=== PATIENT | female | born 1935 | race Caucasian/White ===

== ENCOUNTER 2022-08-25 16:53 | Emergency (ER) | payer MEDICARE ==
[~2022-08-25] VITALS: Ht 154.9 cm; Wt 63.5 kg
[2022-08-25] MEDS ORDERED: MECLIZINE HCL 25 MG TABLET PO ONE (18:00)
[2022-08-25 18:38] LABS: CREATININE 1.5 mg/dL (0.5-1.5); POTASSIUM 4.1 mmol/L (3.5-5.1)
[2022-08-25 18:46] LABS: ALBUMIN 3.1 g/dL (3.5-5.0); TOTAL PROTEIN, SERUM 6.2 g/dL (6.0-8.3)
[2022-08-25 19:01] LABS: BASOPHILS % (AUTO) 1.1 % (0.0-5.0); EOSINOPHILS % (AUTO) 1.9 % (0.0-8.0); HEMATOCRIT 35.2 % (36-48); MEAN CORPUSCULAR HEMOGLOBIN 30.6 pg (27.0-33.0); MEAN CORPUSCULAR HGB CONC 33.8 g/dL (32.0-36.0); MEAN CORPUSCULAR VOLUME 90.5 fL (79-99); MONOCYTES % (AUTO) 8.7 % (3.0-13.0); NEUTROPHILS % (AUTO) 59.8 % (40.0-77.0); PLATELET COUNT (AUTO) 184 K/uL (130-400); RED BLOOD CELL COUNT(AUTO) 3.89 MIL/uL (4.00-5.50); RED CELL DISTRIBUTION WIDTH 15.8 % (11.0-15.5); WHITE BLOOD COUNT (AUTO) 7.6 K/uL (4.8-10.8)
[2022-08-25 19:58] LABS: CRP QUANTITATIVE < 2.00 mg/L (0.00-9.0)
[2022-08-25] MEDS ORDERED: MECL-226 PO (19:59)
[2022-08-25 20:17] VITALS: BP 129/77
== END 2022-08-25 20:27 | disposition home or self-care (01) ==
LOC: EDH 16:53
DX: R42 Dizziness and giddiness (principal); I48.91 Unspecified atrial fibrillation; R73.9 Hyperglycemia, unspecified; D64.9 Anemia, unspecified; I10 Essential (primary) hypertension
CPT/HCPCS: 36415; 70450; 71045; 80053; 83735; 84484; 85025; 86140; 93005